=== PATIENT | male | born 1985 | race Caucasian/White ===

== ENCOUNTER 2018-03-11 00:45 | Emergency (ER) | payer MEDICAID, OTHER ==
[~2018-03-11] VITALS: Ht 188 cm; Wt 88.8 kg
[~2018-03-11 00:45] MED LIST: AZIT-63 PO; HYDR-569 PO; HYDR1TAB PO; IBUP-1985 PO; IBUP-1986 PO
[2018-03-11] MEDS ORDERED: normal saline 1000ML IV soln IV ONE (01:40)
[2018-03-11] MEDS ORDERED: vancomycin/NS 1 GM ADD-VANTAGE 250 ML IV ONE (01:40)
[2018-03-11] MEDS ORDERED: TETanus/Pertussis (Acell)/Diphther VAC/PF (Tdap-Adult) 0.5ml syringe IMVAC ONE (01:40)
[2018-03-11] MEDS ORDERED: piperacillin/tazo 3.375gm/50ml 50 ML IV ONE (01:40)
[2018-03-11] MEDS ORDERED: MORPHINE 2MG in 2ml NS syringe IV PRN (01:40)
[2018-03-11] MEDS ORDERED: ondansetron/PF 4mg/2ml inj IV ONE (01:40)
[2018-03-11 02:24] LABS: BASOPHILS % (AUTO) 0.2 % (0-1); EOSINOPHILS # (AUTO) 0.1 X10'3 (0-0.9); EOSINOPHILS % (AUTO) 0.6 % (0-6); HEMATOCRIT 44.9 % (42.0-52.0); HEMOGLOBIN 15.4 g/dl (14.0-17.9); LYMPHOCYTES # (AUTO) 1.5 X10'3 (1.1-4.8); LYMPHOCYTES % (AUTO) 9.4 % (21-51); MEAN CORPUSCULAR HEMOGLOBIN 30.7 PG (27.0-31.0); MEAN CORPUSCULAR HGB CONC 34.3 % (33.0-36.5); MEAN CORPUSCULAR VOLUME 89.3 FL (78-98); MEAN PLATELET VOLUME 7.8 FL (7.4-10.4); MONOCYTES # (AUTO) 1.2 X10'3 (0-0.9); MONOCYTES % (AUTO) 7.2 % (2-12); NEUTROPHILS # (AUTO) 13.4 X10'3 (1.8-7.7); NEUTROPHILS % (AUTO) 82.6 % (42-75); PLATELET COUNT 239 X10'3 (140-440); RED BLOOD COUNT 5.03 X10'6 (4.70-6.10); RED CELL DISTRIBUTION WIDTH 13.9 % (11.5-14.5); WHITE BLOOD COUNT 16.3 X10'3 (4.5-11.0)
[2018-03-11 02:37] LABS: ALANINE AMINOTRANSFERASE 33 U/L (12-78); ALBUMIN 3.6 G/DL (3.4-5.0); ALBUMIN/GLOBULIN RATIO 1.1 (1.1-1.5); ALKALINE PHOSPHATASE 95 IU/L (46-116); ANION GAP 8 (8-16); ASPARTATE AMINO TRANSFERASE 13 U/L (10-37); BILIRUBIN,TOTAL 0.3 MG/DL (0.1-1.0); BLOOD UREA NITROGEN 11 MG/DL (7-18); BUN/CREATININE RATIO 10.1 (5.4-32.0); CHLORIDE 104 MMOL/L (99-107); CREATININE 1.09 MG/DL (0.60-1.10); GLUCOSE 101 MG/DL (70-104); MAGNESIUM 2.1 MG/DL (1.5-2.4); POTASSIUM 3.6 MMOL/L (3.5-5.1); SODIUM 140 MMOL/L (135-145); TOTAL CARBON DIOXIDE 27.9 MMOL/L (24-32); eGFR 78 ML/MIN
[2018-03-11] MEDS ORDERED: iohexol 300mg/ml 100ml inj. ONE (02:41)
[2018-03-11 02:53] LABS: C-REACTIVE PROTEIN 0.53 MG/DL (0.0-0.5)
[2018-03-11 03:40] LABS: URINE AMPHETAMINE SCREEN POSITIVE (Neg); URINE BARBITUATE SCREEN NEGATIVE (Neg); URINE BENZODIAZEPINES SCREEN NEGATIVE (Neg); URINE CANNABINOID SCREEN POSITIVE (Neg); URINE COCAINE SCREEN NEGATIVE (Neg); URINE METHADONE SCREEN NEGATIVE (Neg); URINE OPIATE SCREEN POSITIVE (Neg); URINE PHENCYCLIDINE SCREEN NEGATIVE (Neg)
[2018-03-11] MEDS ORDERED: CEPH-572 PO (04:56)
[2018-03-11] MEDS ORDERED: SULF1TAB49 PO (04:56)
[2018-03-11 05:27] VITALS: BP 128/82
== END 2018-03-11 05:52 | disposition home or self-care (01) ==
LOC: ER 00:45
DX: L03.113 Cellulitis of right upper limb (principal); R22.31 Localized swelling, mass and lump, right upper limb; F15.10 Other stimulant abuse, uncomplicated; F12.90 Cannabis use, unspecified, uncomplicated; Z56.0 Unemployment, unspecified; Z79.2 Long term (current) use of antibiotics; Z79.899 Other long term (current) drug therapy
CPT/HCPCS: 36415; 73201; 80053; 80305; 83605; 83735; 84145; 85025; 86140; 87040; 90471; 90715; 93005; 96365; 96367; 96375; 99285; J2274; J2405; J2543; J3370; J7030; Q9967

== ENCOUNTER 2019-01-12 15:14 | Emergency (ER) | payer MEDICAID ==
[~2019-01-12] VITALS: Ht 182.9 cm; Wt 86.0 kg
[~2019-01-12 15:14] MED LIST changes: +CEPH500C5 PO; +HYDR-4383 PO; -HYDR-569 PO
[2019-01-12] MEDS ORDERED: NALO4SPR (15:33)
[2019-01-12 16:32] VITALS: BP 138/95
== END 2019-01-12 16:33 | disposition home or self-care (01) ==
LOC: ER 15:17
DX: T40.1X1A Poisoning by heroin, accidental (unintentional), initial encounter (principal); F15.90 Other stimulant use, unspecified, uncomplicated; Z56.0 Unemployment, unspecified; Y92.89 Other specified places as the place of occurrence of the external cause
CPT/HCPCS: 99283

== ENCOUNTER 2019-01-28 23:37 | Emergency (ER) | payer MEDICAID ==
[~2019-01-28] VITALS: Ht 182.9 cm; Wt 84.0 kg
[~2019-01-28 23:37] MED LIST changes: +NALO4SPR
[2019-01-28 23:42] VITALS: BP 133/86
[2019-01-29] MEDS ORDERED: CefTRIAXone 1000mg IM Kit (w/lidocaine diluent) IM ONE
[2019-01-29] MEDS ORDERED: DOXY100C43 PO (00:03)
[2019-01-29] MEDS ORDERED: CEPH-571 PO (00:03)
== END 2019-01-29 00:40 | disposition home or self-care (01) ==
LOC: ER 23:38
DX: L03.114 Cellulitis of left upper limb (principal); F19.10 Other psychoactive substance abuse, uncomplicated; F11.90 Opioid use, unspecified, uncomplicated; Z98.890 Other specified postprocedural states; Z56.0 Unemployment, unspecified; Z79.899 Other long term (current) drug therapy
CPT/HCPCS: 96372; 99283; J0696

== ENCOUNTER 2024-12-30 16:31 | Emergency (ER) | payer MEDICAID, OTHER ==
[~2024-12-30] VITALS: Ht 182.9 cm; Wt 107.7 kg
[~2024-12-30 16:31] MED LIST changes: +AZIT-164 PO; -AZIT-63 PO; +CEPH-571 PO; -CEPH500C5 PO
[2024-12-30 16:52] VITALS: BP 130/67; PULSE 63; O2SAT 99
[2024-12-30] MEDS: dexamethasone sod phosphate 10mg/ml inj IM STA (18:41)
[2024-12-30 18:42] VITALS: RESP 16
[2024-12-30] MEDS: ketorolac trometh 30MG/ML vial 30 MG/ML VIAL IM ONE (18:42)
[2024-12-30] MEDS ORDERED: PRED20TA PO (19:35)
[2024-12-30] MEDS ORDERED: METH-798 PO (19:35)
[2024-12-30 19:43] VITALS: TEMP 98
== END 2024-12-30 19:45 | disposition home or self-care (01) ==
LOC: ER 16:32
DX: M54.17 Radiculopathy, lumbosacral region (principal)
CPT/HCPCS: 72100; 96372; 99284; J1100; J1885